=== PATIENT | female | born 1980 | race Caucasian/White ===

== ENCOUNTER 2025-03-19 11:08 | Emergency (ER) | payer MEDICAID ==
[2025-03-19 11:26] LABS: APPEARANCE,URINE CLEAR (CLEAR); BILIRUBIN,URINE SMALL (NEGATIVE); COLOR,URINE YELLOW (YELLOW); GLUCOSE,URINE NEGATIVE (NEGATIVE); KETONES,URINE NEGATIVE (NEGATIVE); LEUKOCYTE ESTERASE,URINE NEGATIVE (NEGATIVE); NITRITE,URINE NEGATIVE (NEGATIVE); OCCULT BLOOD,URINE LARGE (NEGATIVE); PH,URINE 5.5 (4.5-8.0); PROTEIN,URINE TRACE mg/dL (NEGATIVE); UROBILINOGEN,URINE 0.2 EU/dL (0.2-1.0)
[2025-03-19 11:34] LABS: BACTERIA,URINE OCCASIONAL /HPF (NOT SEEN); EPITHELIAL CELLS,URINE MODERATE /HPF (NOT SEEN); MUCUS,URINE MODERATE /HPF (NOT SEEN); RBC,URINE 0-5 /HPF (0-5); WBC,URINE 0-5 /HPF (0-5)
[2025-03-19 15:47] VITALS: BP 122/68; PULSE 78
== END 2025-03-19 14:15 | disposition home or self-care (01) ==
LOC: CC.ED 11:08
DX: R31.9 Hematuria, unspecified (principal); J45.909 Unspecified asthma, uncomplicated; Z79.899 Other long term (current) drug therapy
CPT/HCPCS: 76770; 81001; 81025; 99284